=== PATIENT | female | born 1940 | race Caucasian/White ===

== ENCOUNTER 2021-01-02 11:08 | Inpatient (IN) | payer MEDICARE, OTHER ==
[~2021-01-02] VITALS: Ht 162.6 cm; Wt 49.6 kg
[2021-01-02 11:46] LABS: BASOPHILS # (AUTO) 0.1 (0.0-0.1); BASOPHILS % 0.7 % (0.0-1.0); EOSINOPHILS # (AUTO) 0.1 (0.0-0.4); EOSINOPHILS % 0.8 % (0.0-6.0); HEMOGLOBIN 13.8 g/dL (12.0-16.0); LYMPHOCYTES # (AUTO) 1.8 (1.0-3.2); LYMPHOCYTES % 12.1 % (18.0-39.1); MEAN CORPUSCULAR HEMOGLOBIN 28.4 pg (28-32); MEAN CORPUSCULAR HGB CONC 32.1 g/dL (31-35); MEAN CORPUSCULAR VOLUME 88.5 fL (81-99); MONOCYTES # (AUTO) 0.5 (0.2-0.8); MONOCYTES % 3.5 % (4.4-11.3); NEUTROPHILS # (AUTO) 12.1 (2.1-6.9); NEUTROPHILS % 81.7 % (38.7-80.0); PLATELET COUNT 382 x10e3/uL (140-360); RED BLOOD COUNT 4.86 x10e6/uL (3.6-5.1); RED CELL DISTRIBUTION WIDTH 13.7 % (11.7-14.4)
[2021-01-02 11:49] LABS: CLARITY,URINE CLEAR (CLEAR); COLOR,URINE YELLOW (YELLOW); KETONES,URINE NEGATIVE (NEGATIVE); LEUKOCYTE ESTERASE ,URINE NEGATIVE (NEGATIVE); NITRITE,URINE NEGATIVE (NEGATIVE); PROTEIN,URINE DIPSTICK NEGATIVE (NEGATIVE); URINE UROBILINOGEN 0.2 mg/dL (0.2 - 1)
[2021-01-02 11:52] LABS: INR 1.04; PROTHROMBIN TIME 14.2 seconds (11.9-14.5)
[2021-01-02 11:53] LABS: PARTIAL THROMBOPLASTIN TIME 29.7 seconds (23.8-35.5)
[2021-01-02 11:57] LABS: RBC,URINE 0-5 /HPF (0-5); WBC,URINE (MAN) 0-5 /HPF (0-5)
[2021-01-02 11:58] LABS: BACTERIA,URINE RARE /HPF; EPITHELIAL CELLS,URINE RARE /LPF
[2021-01-02 12:00] LABS: ALBUMIN 3.5 g/dL (3.5-5.0); ALBUMIN/GLOBULIN RATIO 1.1 (0.8-2.0); ANION GAP 16.9 mmol/L (8-16); CALCIUM 9.3 mg/dL (8.4-10.2); CREATININE, SERUM 1.19 mg/dL (0.57-1.11); MAGNESIUM 2.1 MG/DL (1.3-2.1); POTASSIUM 3.9 mmol/L (3.5-5.1)
[2021-01-02] MEDS ORDERED: VENLAFAXINE HCL75 MG PO (12:04)
[2021-01-02] MEDS ORDERED: ZITHROMAX250 MG PO (12:04)
[2021-01-02] MEDS ORDERED: PLAVIX75 MG PO (12:04)
[2021-01-02] MEDS ORDERED: METOPROLOL TART25 MG PO (12:04)
[2021-01-02] MEDS ORDERED: ATORVASTATIN CA20 MG PO (12:04)
[2021-01-02] MEDS ORDERED: LASIX20 MG PO (12:04)
[2021-01-02] MEDS ORDERED: TRAZODONE HCL100 MG PO (12:04)
[2021-01-02] MEDS ORDERED: AMLODIPINE BESYL5 MG PO (12:04)
[2021-01-02] MEDS ORDERED: PREDNISONE10 MG PO (12:04)
[2021-01-02] MEDS ORDERED: ARICEPT5 MG PO (12:04)
[2021-01-02] MEDS ORDERED: CALCIUM CARBON500 MG PO (12:04)
[2021-01-02 12:07] LABS: CREATINE KINASE MB 0.4 ng/mL (0-5.0)
[2021-01-02] MEDS ORDERED: SODIUM CHLORIDE 0.9% 1000ML 1,000 ML IV ONE (13:00)
[2021-01-02] MEDS ORDERED: ONDANSETRON HCL INJ 2MG/ML 2ML 2 MG/ML VIAL IV PRN (13:00)
[2021-01-02 17:00] VITALS: BP 138/86
[2021-01-02 17:01] VITALS: BP 138/86
[2021-01-02 18:10] LABS: CREATINE KINASE MB 0.6 ng/mL (0-5.0)
[2021-01-02 20:00] VITALS: BP 175/88
[2021-01-02] MEDS ORDERED: ACETAMINOPHEN 325 MG TAB PO PRN (20:00)
[2021-01-02] MEDS ORDERED: HYDRALAZINE HCL 20 MG/ML VIAL IV PRN (20:00)
[2021-01-02] MEDS ORDERED: ACETAMINOPHEN/CODEINE 300MG - 30MG TAB PO PRN (20:00)
[2021-01-02 21:00] VITALS: BP 175/88
[2021-01-02] MEDS: DONEPEZIL HCL 5 MG TAB PO SCH (21:00)
[2021-01-02] MEDS: TRAZODONE HCL 50 MG TAB PO SCH (21:00)
[2021-01-02] MEDS: ATORVASTATIN 20 MG TAB PO SCH (21:00)
[2021-01-03] VITALS (7 sets, daily range): BP systolic 90–149; BP diastolic 50–92
[2021-01-03 05:31] LABS: BASOPHILS # (AUTO) 0.1 (0.0-0.1); BASOPHILS % 0.5 % (0.0-1.0); EOSINOPHILS # (AUTO) 0.1 (0.0-0.4); EOSINOPHILS % 0.7 % (0.0-6.0); HEMATOCRIT 35.9 % (34.2-44.1); LYMPHOCYTES # (AUTO) 2.3 (1.0-3.2); LYMPHOCYTES % 20.4 % (18.0-39.1); MEAN CORPUSCULAR HEMOGLOBIN 28.8 pg (28-32); MEAN CORPUSCULAR HGB CONC 33.4 g/dL (31-35); MEAN CORPUSCULAR VOLUME 86.1 fL (81-99); MONOCYTES # (AUTO) 0.6 (0.2-0.8); MONOCYTES % 5.4 % (4.4-11.3); NEUTROPHILS % 72.1 % (38.7-80.0); PLATELET COUNT 319 x10e3/uL (140-360); RED BLOOD COUNT 4.17 x10e6/uL (3.6-5.1); RED CELL DISTRIBUTION WIDTH 13.6 % (11.7-14.4)
[2021-01-03 05:59] LABS: ALBUMIN 3.2 g/dL (3.5-5.0); ANION GAP 16.7 mmol/L (8-16); CALCIUM 9.4 mg/dL (8.4-10.2); CHOL/HDL RATIO 3.8 (3.0-3.6); CREATININE, SERUM 1.17 mg/dL (0.57-1.11); POTASSIUM 3.7 mmol/L (3.5-5.1)
[2021-01-03 06:18] LABS: CREATINE KINASE MB 0.6 ng/mL (0-5.0)
[2021-01-03] MEDS: FAMOTIDINE 20 MG TAB PO SCH ×2 (07:53→16:30)
[2021-01-03] MEDS: METOPROLOL TARTRATE 25 MG TAB PO SCH ×2 (08:45→16:31)
[2021-01-03] MEDS: VENLAFAXINE HCL 75 MG TAB PO SCH (08:45)
[2021-01-03] MEDS: FUROSEMIDE 20 MG TAB PO SCH (08:45)
[2021-01-03] MEDS ORDERED: CLOPIDOGREL BISULFATE 75 MG TAB PO SCH (09:00)
[2021-01-03] MEDS ORDERED: AMLODIPINE BESYLATE 5 MG TAB PO SCH (09:00)
[2021-01-03] MEDS ORDERED: ENOXAPARIN SOD INJ 60 MG/0.6 ML SYR SC SCH (10:45)
[2021-01-03] MEDS ORDERED: ONDANSETRON HCL 4 MG ORAL DISINTEGRATING TAB PO PRN (14:00)
[2021-01-03 14:43] LABS: CREATINE KINASE MB 0.7 ng/mL (0-5.0)
[2021-01-03] MEDS: APIXAB 2.5 MG TABLET PO SCH (16:30)
[2021-01-03] MEDS: ATORVASTATIN 20 MG TAB PO SCH (21:00)
[2021-01-03] MEDS: TRAZODONE HCL 50 MG TAB PO SCH (21:00)
[2021-01-03] MEDS: DONEPEZIL HCL 5 MG TAB PO SCH (21:00)
[2021-01-04] VITALS: BP 125/76
[2021-01-04 04:00] VITALS: BP 137/77
[2021-01-04 06:04] LABS: BASOPHILS # (AUTO) 0.1 (0.0-0.1); BASOPHILS % 1.1 % (0.0-1.0); EOSINOPHILS # (AUTO) 0.2 (0.0-0.4); EOSINOPHILS % 2.9 % (0.0-6.0); HEMATOCRIT 36.8 % (34.2-44.1); HEMOGLOBIN 12.2 g/dL (12.0-16.0); LYMPHOCYTES # (AUTO) 2.5 (1.0-3.2); LYMPHOCYTES % 31.3 % (18.0-39.1); MEAN CORPUSCULAR HEMOGLOBIN 28.6 pg (28-32); MEAN CORPUSCULAR HGB CONC 33.2 g/dL (31-35); MEAN CORPUSCULAR VOLUME 86.2 fL (81-99); MONOCYTES # (AUTO) 0.5 (0.2-0.8); MONOCYTES % 6.7 % (4.4-11.3); NEUTROPHILS # (AUTO) 4.5 (2.1-6.9); NEUTROPHILS % 57.2 % (38.7-80.0); PLATELET COUNT 280 x10e3/uL (140-360); RED BLOOD COUNT 4.27 x10e6/uL (3.6-5.1); RED CELL DISTRIBUTION WIDTH 13.5 % (11.7-14.4)
[2021-01-04 06:35] LABS: ANION GAP 15.6 mmol/L (8-16); CALCIUM 9.2 mg/dL (8.4-10.2); CREATININE, SERUM 1.04 mg/dL (0.57-1.11); MAGNESIUM 1.9 MG/DL (1.3-2.1); PHOSPHORUS 3.5 MG/DL (2.3-4.7); POTASSIUM 3.6 mmol/L (3.5-5.1)
[2021-01-04] MEDS: FAMOTIDINE 20 MG TAB PO SCH ×2 (07:30→16:05)
[2021-01-04 07:44] VITALS: BP 110/73
[2021-01-04 07:54] VITALS: BP 110/73
[2021-01-04 07:55] VITALS: BP 110/73
[2021-01-04] MEDS ORDERED: PREDNISONE 10 MG TAB PO SCH (09:00)
[2021-01-04] MEDS ORDERED: AMLODIPINE BESYLATE 5 MG TAB PO SCH (09:00)
[2021-01-04] MEDS ORDERED: CLOPIDOGREL BISULFATE 75 MG TAB PO SCH (09:00)
[2021-01-04] MEDS ORDERED: OYST-CAL-D 500MG TABLET PO SCH (09:00)
[2021-01-04] MEDS: VENLAFAXINE HCL 75 MG TAB PO SCH (09:06)
[2021-01-04] MEDS: APIXAB 2.5 MG TABLET PO SCH ×2 (09:06→16:05)
[2021-01-04] MEDS: METOPROLOL TARTRATE 25 MG TAB PO SCH ×2 (09:07→16:08)
[2021-01-04] MEDS: FUROSEMIDE 20 MG TAB PO SCH (09:07)
[2021-01-04 12:17] VITALS: BP 104/60
[2021-01-04] MEDS ORDERED: ELIQUIS2.5 MG PO (15:09)
[2021-01-04] MEDS ORDERED: ACETAMINOPHEN325 M1 PO (15:09)
[2021-01-04] MEDS ORDERED: ONDANSETRON ODT4 MG PO (15:09)
[2021-01-04] MEDS ORDERED: TYLENOL # 31 EA PO (15:09)
== END 2021-01-04 17:35 | disposition home or self-care (01) | DRG 309 ==
LOC: ER 11:17 → ERHOLD 12:57 → MED/SURG3 16:10 → OBSVTOIN 01-04 10:02
PROVIDERS: ADMIT Internal Medicine; ATTEND Internal Medicine
DX: I48.91 Unspecified atrial fibrillation (principal); Z68.1 Body mass index [BMI] 19.9 or less, adult; I67.4 Hypertensive encephalopathy; I10 Essential (primary) hypertension; E87.5 Hyperkalemia; F03.90 Unspecified dementia, unspecified severity, without behavioral disturbance, psychotic disturbance, mood disturbance, and anxiety; Z86.73 Personal history of transient ischemic attack (TIA), and cerebral infarction without residual deficits; J44.9 Chronic obstructive pulmonary disease, unspecified; L27.1 Localized skin eruption due to drugs and medicaments taken internally; T46.5X5A Adverse effect of other antihypertensive drugs, initial encounter; E78.5 Hyperlipidemia, unspecified; I49.3 Ventricular premature depolarization; Z20.822 Contact with and (suspected) exposure to COVID-19; I70.0 Atherosclerosis of aorta; G93.89 Other specified disorders of brain; R63.6 Underweight
CPT/HCPCS: 36415; 51700; 70450; 70551; 71045; 72125; 80048; 80053; 80061; 81001; 82550; 82553; 83735; 83880; 84100; 84443; 84484; 85025; 85610; 85730; 87086; 93005; 93306; 93880; 99284; G0378; J0360; J1650; J7512; U0002

== ENCOUNTER 2021-04-16 05:51 | Inpatient (IN) | payer MEDICARE, OTHER ==
[~2021-04-16] VITALS: Ht 160 cm; Wt 52.6 kg
[2021-04-16] VITALS (10 sets, daily range): BP systolic 117–168; BP diastolic 60–132
[~2021-04-16 05:51] MED LIST: ACETAMINOPHEN325 M1 PO; AMLODIPINE BESYL5 MG PO; ARICEPT5 MG PO; ATORVASTATIN CA20 MG PO; CALCIUM CARBON500 MG PO; ELIQUIS2.5 MG PO; LASIX20 MG PO; METOPROLOL TART25 MG PO; ONDANSETRON ODT4 MG PO; PLAVIX75 MG PO; PREDNISONE10 MG PO; TRAZODONE HCL100 MG PO; TYLENOL # 31 EA PO; VENLAFAXINE HCL75 MG PO; ZITHROMAX250 MG PO
[2021-04-16 06:25] LABS: BASOPHILS # (AUTO) 0.1 (0.0-0.1); BASOPHILS % 0.5 % (0.0-1.0); EOSINOPHILS # (AUTO) 0.1 (0.0-0.4); EOSINOPHILS % 0.5 % (0.0-6.0); HEMATOCRIT 38.6 % (34.2-44.1); HEMOGLOBIN 12.2 g/dL (12.0-16.0); LYMPHOCYTES # (AUTO) 1.7 (1.0-3.2); LYMPHOCYTES % 11.3 % (18.0-39.1); MEAN CORPUSCULAR HEMOGLOBIN 27.3 pg (28-32); MEAN CORPUSCULAR HGB CONC 31.6 g/dL (31-35); MEAN CORPUSCULAR VOLUME 86.4 fL (81-99); MONOCYTES # (AUTO) 0.7 (0.2-0.8); MONOCYTES % 4.7 % (4.4-11.3); NEUTROPHILS # (AUTO) 12.3 (2.1-6.9); NEUTROPHILS % 81.9 % (38.7-80.0); PLATELET COUNT 466 x10e3/uL (140-360); RED BLOOD COUNT 4.47 x10e6/uL (3.6-5.1); RED CELL DISTRIBUTION WIDTH 16.7 % (11.7-14.4)
[2021-04-16] MEDS ORDERED: METOPROLOL TARTRATE INJ 1 MG/ML VIAL ONE (06:25)
[2021-04-16] MEDS ORDERED: DIGOXIN INJ 0.25 MG/ML 2 ML AMP ONE (06:25)
[2021-04-16] MEDS ORDERED: DIGOXIN INJ 0.25 MG/ML 2 ML AMP IV ONE ×2 (06:30→08:00)
[2021-04-16] MEDS ORDERED: METOPROLOL TARTRATE INJ 1 MG/ML VIAL IV ONE ×2 (06:30→07:00)
[2021-04-16 06:32] LABS: INR 1.15; PROTHROMBIN TIME 15.4 seconds (11.9-14.5)
[2021-04-16 06:33] LABS: PARTIAL THROMBOPLASTIN TIME 23.9 seconds (23.8-35.5)
[2021-04-16 06:41] LABS: ALBUMIN 2.8 g/dL (3.5-5.0); ALBUMIN/GLOBULIN RATIO 0.7 (0.8-2.0); ANION GAP 17.3 mmol/L (8-16); CALCIUM 9.6 mg/dL (8.4-10.2); CREATININE, SERUM 1.07 mg/dL (0.57-1.11); POTASSIUM 4.3 mmol/L (3.5-5.1)
[2021-04-16 06:45] LABS: CLARITY,URINE CLEAR (CLEAR); COLOR,URINE YELLOW (YELLOW); KETONES,URINE TRACE (NEGATIVE); LEUKOCYTE ESTERASE ,URINE NEGATIVE (NEGATIVE); NITRITE,URINE NEGATIVE (NEGATIVE); PROTEIN,URINE DIPSTICK 1+ (NEGATIVE); URINE UROBILINOGEN 0.2 mg/dL (0.2 - 1)
[2021-04-16 06:47] LABS: CREATINE KINASE MB 1.3 ng/mL (0-5.0)
[2021-04-16 06:56] LABS: BACTERIA,URINE RARE /HPF; EPITHELIAL CELLS,URINE FEW /LPF
[2021-04-16] MEDS ORDERED: CEFTRIAXONE 1 GM in SODIUM CHLORIDE 0.9% 50ML 50 ML IV SCH (07:30)
[2021-04-16] MEDS ORDERED: AZITHROMYCIN 500MG/NS 250 ML 250 ML IV SCH (07:30)
[2021-04-16] MEDS ORDERED: METOPROLOL TARTRATE 25 MG TAB PO ONE (08:45)
[2021-04-16] MEDS: PIPERACILLIN/TAZOBACTAM 3.375 GM in SODIUM CHLORIDE 0.9% 50ML 50 ML IV SCH ×3 (09:03→19:51)
[2021-04-16] MEDS: FAMOTIDINE 20 MG/2 ML VIAL IV SCH ×2 (09:30→20:10)
[2021-04-16] MEDS ORDERED: ONDANSETRON HCL INJ 2MG/ML 2ML 2 MG/ML VIAL IV PRN (09:30)
[2021-04-16] MEDS ORDERED: NITROGLYCERIN 2% OINT 1 GM PKT TOP ONE (09:30)
[2021-04-16 10:04] LABS: ABG PCO2 40 mmHg (35-45); ABG PH 7.46 (7.35-7.45); ABG PO2 222 mmHg (80-105)
[2021-04-16 10:05] LABS: ABG HCO3 29 mmol/L (22-26); ABG TCO2 30
[2021-04-16] MEDS ORDERED: NITROGLYCERIN 2% OINT 1 GM PKT TOP SCH (12:00)
[2021-04-16 13:24] LABS: CREATINE KINASE MB 1.5 ng/mL (0-5.0)
[2021-04-16] MEDS ORDERED: SODIUM CHLORIDE 0.9% IV SCH (13:30)
[2021-04-16] MEDS ORDERED: HYDRALAZINE HCL 20 MG/ML VIAL IV PRN (14:45)
[2021-04-16] MEDS: METOPROLOL TARTRATE 25 MG TAB PO SCH ×2 (14:45→18:00)
[2021-04-16] MEDS ORDERED: METOPROLOL TARTRATE INJ 1 MG/ML VIAL IV PRN (14:45)
[2021-04-16] MEDS ORDERED: FUROSEMIDE INJ 10 MG/ML 2 ML VIAL IV SCH (18:00)
[2021-04-16] MEDS ORDERED: FUROSEMIDE INJ 10 MG/ML 2 ML VIAL IV ONE (18:00)
[2021-04-16] MEDS ORDERED: FUROSEMIDE INJ 10 MG/ML 4 ML VIAL IV ONE (19:15)
[2021-04-16] MEDS ORDERED: VANCOMYCIN 1GM/NS 250 ML 250 ML IV ONE (19:15)
[2021-04-16] MEDS ORDERED: ALBUTEROL/IPRATROPIUM 3 ML NEB NEB SCH (19:30)
[2021-04-16] MEDS: BUDESONIDE 0.25 MG/2 ML NEB NEB SCH (19:30)
[2021-04-16] MEDS: IPRATROPIUM BROMIDE 0.02% 2.5 ML NEB NEB SCH (19:30)
[2021-04-16] MEDS: METHYLPREDNISOLONE SOD SUCC 40 MG/ML VIAL 1ML IV SCH ×2 (20:10→21:00)
[2021-04-16] MEDS: ENOXAPARIN SOD INJ 40 MG/0.4 ML SYR SC SCH (20:10)
[2021-04-16] MEDS ORDERED: METOPROLOL TARTRATE 25 MG TAB PO SCH (21:00)
[2021-04-16] MEDS ORDERED: Vancomycin IV 1 GM VIAL ONE (21:27)
[2021-04-16] MEDS ORDERED: SODIUM CHLORIDE 0.9% 250ML 250 ML ONE (21:28)
[2021-04-17] VITALS (23 sets, daily range): BP systolic 98–159; BP diastolic 49–96
[2021-04-17 00:15] LABS: ABG HCO3 24 mmol/L (22-26); ABG PCO2 34 mmHg (35-45); ABG PH 7.46 (7.35-7.45); ABG PO2 78 mmHg (80-105); ABG TCO2 25
[2021-04-17] MEDS: PIPERACILLIN/TAZOBACTAM 3.375 GM in SODIUM CHLORIDE 0.9% 50ML 50 ML IV SCH ×4 (00:45→17:14)
[2021-04-17] MEDS: IPRATROPIUM BROMIDE 0.02% 2.5 ML NEB NEB SCH ×3 (01:00→19:35)
[2021-04-17] MEDS: METOPROLOL TARTRATE 25 MG TAB PO SCH ×4 (01:06→17:15)
[2021-04-17 02:35] LABS: CREATINE KINASE MB 1.1 ng/mL (0-5.0)
[2021-04-17 05:08] LABS: BASOPHILS % 0.3 % (0.0-1.0); HEMATOCRIT 29.4 % (34.2-44.1); HEMOGLOBIN 9.3 g/dL (12.0-16.0); LYMPHOCYTES # (AUTO) 0.8 (1.0-3.2); MEAN CORPUSCULAR HEMOGLOBIN 27.2 pg (28-32); MEAN CORPUSCULAR HGB CONC 31.6 g/dL (31-35); MONOCYTES # (AUTO) 0.1 (0.2-0.8); MONOCYTES % 1.2 % (4.4-11.3); NEUTROPHILS # (AUTO) 6.4 (2.1-6.9); NEUTROPHILS % 86.4 % (38.7-80.0); PLATELET COUNT 384 x10e3/uL (140-360); RED BLOOD COUNT 3.42 x10e6/uL (3.6-5.1); RED CELL DISTRIBUTION WIDTH 16.4 % (11.7-14.4)
[2021-04-17 05:26] LABS: ALBUMIN/GLOBULIN RATIO 0.6 (0.8-2.0); ANION GAP 11.3 mmol/L (8-16); CALCIUM 8.2 mg/dL (8.4-10.2); CHOL/HDL RATIO 5.2 (3.0-3.6); CREATININE, SERUM 0.86 mg/dL (0.57-1.11); POTASSIUM 3.3 mmol/L (3.5-5.1)
[2021-04-17] MEDS ORDERED: POTASSIUM CHLORIDE 10MEQ EA PO ONE (06:30)
[2021-04-17] MEDS: BUDESONIDE 0.25 MG/2 ML NEB NEB SCH ×2 (07:00→19:35)
[2021-04-17] MEDS: FAMOTIDINE 20 MG/2 ML VIAL IV SCH ×2 (08:50→21:07)
[2021-04-17] MEDS: ASPIRIN 81 MG ENTERIC COATED PO SCH (08:50)
[2021-04-17] MEDS: ENOXAPARIN SOD INJ 40 MG/0.4 ML SYR SC SCH ×2 (08:50→21:07)
[2021-04-17] MEDS: METHYLPREDNISOLONE SOD SUCC 40 MG/ML VIAL 1ML IV SCH (08:50)
[2021-04-17] MEDS: AMLODIPINE BESYLATE 5 MG TAB PO SCH (09:00)
[2021-04-17] MEDS ORDERED: SODIUM HYPOCHLORITE 0.25% 480 ML SOLN IR ONE (12:30)
[2021-04-17] MEDS: HALOPERIDOL 1 MG TAB PO SCH (18:37)
[2021-04-17] MEDS ORDERED: SODIUM CHLORIDE 0.9% 250ML 250 ML ONE (23:53)
[2021-04-18] VITALS (9 sets, daily range): BP systolic 90–172; BP diastolic 53–112
[2021-04-18] MEDS: IPRATROPIUM BROMIDE 0.02% 2.5 ML NEB NEB SCH ×3 (00:02→20:14)
[2021-04-18] MEDS: PIPERACILLIN/TAZOBACTAM 3.375 GM in SODIUM CHLORIDE 0.9% 50ML 50 ML IV SCH ×5 (00:12→23:38)
[2021-04-18 00:54] LABS: % IRON SATURATION 11 % (15-50); IRON 22 ug/dL (50-170); TOTAL IRON BINDING CAPACITY 197 ug/dL (261-478); TRANSFERRIN 141 mg/dL (180-382)
[2021-04-18 04:54] LABS: BASOPHILS % 0.1 % (0.0-1.0); EOSINOPHILS % 0.2 % (0.0-6.0); HEMATOCRIT 33.3 % (34.2-44.1); HEMOGLOBIN 10.7 g/dL (12.0-16.0); LYMPHOCYTES # (AUTO) 2.7 (1.0-3.2); LYMPHOCYTES % 18.6 % (18.0-39.1); MEAN CORPUSCULAR HEMOGLOBIN 27.6 pg (28-32); MEAN CORPUSCULAR HGB CONC 32.1 g/dL (31-35); MONOCYTES # (AUTO) 0.7 (0.2-0.8); MONOCYTES % 4.7 % (4.4-11.3); NEUTROPHILS # (AUTO) 10.8 (2.1-6.9); NEUTROPHILS % 75.1 % (38.7-80.0); PLATELET COUNT 414 x10e3/uL (140-360); RED BLOOD COUNT 3.87 x10e6/uL (3.6-5.1); RED CELL DISTRIBUTION WIDTH 16.4 % (11.7-14.4)
[2021-04-18 05:23] LABS: ALBUMIN 2.1 g/dL (3.5-5.0); ALBUMIN/GLOBULIN RATIO 0.6 (0.8-2.0); ANION GAP 12.3 mmol/L (8-16); CALCIUM 9.4 mg/dL (8.4-10.2); CREATININE, SERUM 1.02 mg/dL (0.57-1.11); POTASSIUM 3.3 mmol/L (3.5-5.1)
[2021-04-18] MEDS: METOPROLOL TARTRATE 25 MG TAB PO SCH ×4 (05:42→17:19)
[2021-04-18] MEDS: HALOPERIDOL 1 MG TAB PO SCH ×2 (05:42→17:19)
[2021-04-18] MEDS: AMLODIPINE BESYLATE 5 MG TAB PO SCH ×2 (09:00→17:10)
[2021-04-18] MEDS ORDERED: METHYLPREDNISOLONE SOD SUCC 40 MG/ML VIAL 1ML IV SCH (09:00)
[2021-04-18] MEDS: BUDESONIDE 0.25 MG/2 ML NEB NEB SCH ×2 (10:33→20:14)
[2021-04-18] MEDS: ENOXAPARIN SOD INJ 40 MG/0.4 ML SYR SC SCH ×2 (10:43→21:25)
[2021-04-18] MEDS: FAMOTIDINE 20 MG/2 ML VIAL IV SCH (10:43)
[2021-04-18] MEDS: FUROSEMIDE INJ 10 MG/ML 4 ML VIAL IV SCH (10:43)
[2021-04-18] MEDS: ASPIRIN 81 MG ENTERIC COATED PO SCH (11:01)
[2021-04-18] MEDS: POTASSIUM CHLORIDE 10MEQ EA PO SCH (11:02)
[2021-04-18] MEDS ORDERED: ONDANSETRON HCL 4 MG ORAL DISINTEGRATING TAB PO PRN (11:45)
[2021-04-18] MEDS: IRON SUCROSE 100 MG in SODIUM CHLORIDE 0.9% 100 ML 100 ML IV SCH (12:00)
[2021-04-18] MEDS: FAMOTIDINE 20 MG TAB PO SCH (21:25)
[2021-04-19] VITALS (8 sets, daily range): BP systolic 140–177; BP diastolic 77–113
[2021-04-19] MEDS: IPRATROPIUM BROMIDE 0.02% 2.5 ML NEB NEB SCH ×4 (00:25→19:48)
[2021-04-19] MEDS ORDERED: CYANOCOBALAMIN INJ 1,000 MCG/ML VIAL IM ONE (00:30)
[2021-04-19 04:53] LABS: BASOPHILS % 0.2 % (0.0-1.0); EOSINOPHILS % 0.1 % (0.0-6.0); HEMOGLOBIN 11.2 g/dL (12.0-16.0); LYMPHOCYTES # (AUTO) 2.9 (1.0-3.2); LYMPHOCYTES % 17.2 % (18.0-39.1); MEAN CORPUSCULAR HEMOGLOBIN 27.3 pg (28-32); MEAN CORPUSCULAR VOLUME 85.2 fL (81-99); MONOCYTES % 5.8 % (4.4-11.3); NEUTROPHILS # (AUTO) 12.6 (2.1-6.9); NEUTROPHILS % 75.4 % (38.7-80.0); PLATELET COUNT 544 x10e3/uL (140-360); RED BLOOD COUNT 4.11 x10e6/uL (3.6-5.1); RED CELL DISTRIBUTION WIDTH 16.3 % (11.7-14.4)
[2021-04-19 05:21] LABS: ALBUMIN 2.6 g/dL (3.5-5.0); ALBUMIN/GLOBULIN RATIO 0.7 (0.8-2.0); ANION GAP 13.8 mmol/L (8-16); CALCIUM 9.6 mg/dL (8.4-10.2); CREATININE, SERUM 1.06 mg/dL (0.57-1.11)
[2021-04-19 05:26] LABS: POTASSIUM 2.8 mmol/L (3.5-5.1)
[2021-04-19] MEDS: HALOPERIDOL 1 MG TAB PO SCH ×2 (05:45→17:32)
[2021-04-19] MEDS: PIPERACILLIN/TAZOBACTAM 3.375 GM in SODIUM CHLORIDE 0.9% 50ML 50 ML IV SCH ×4 (05:45→23:14)
[2021-04-19] MEDS: METOPROLOL TARTRATE 25 MG TAB PO SCH ×2 (05:46)
[2021-04-19] MEDS ORDERED: POTASSIUM CHLORIDE 20 MEQ TAB CR PO ONE ×2 (06:00→08:00)
[2021-04-19] MEDS: BUDESONIDE 0.25 MG/2 ML NEB NEB SCH ×2 (07:00→19:48)
[2021-04-19] MEDS ORDERED: METHYLPREDNISOLONE SOD SUCC 40 MG/ML VIAL 1ML IV SCH (09:00)
[2021-04-19] MEDS: FUROSEMIDE INJ 10 MG/ML 4 ML VIAL IV SCH (09:39)
[2021-04-19] MEDS: CYANOCOBALAMIN INJ 1,000 MCG/ML VIAL IM SCH (09:40)
[2021-04-19] MEDS: AMLODIPINE BESYLATE 5 MG TAB PO SCH (10:01)
[2021-04-19] MEDS: FAMOTIDINE 20 MG TAB PO SCH ×2 (10:02→22:53)
[2021-04-19] MEDS: POTASSIUM CHLORIDE 10MEQ EA PO SCH (10:12)
[2021-04-19] MEDS: APIXAB 2.5 MG TABLET PO SCH ×2 (10:18→17:32)
[2021-04-19] MEDS: METOPROLOL TARTRATE 50 MG TAB PO SCH ×2 (10:18→22:58)
[2021-04-19] MEDS: IRON SUCROSE 100 MG in SODIUM CHLORIDE 0.9% 100 ML 100 ML IV SCH (13:02)
[2021-04-20 00:07] VITALS: BP 162/111
[2021-04-20] MEDS: IPRATROPIUM BROMIDE 0.02% 2.5 ML NEB NEB SCH ×4 (00:25→19:05)
[2021-04-20 05:00] LABS: BASOPHILS % 0.1 % (0.0-1.0); EOSINOPHILS # (AUTO) 0.1 (0.0-0.4); EOSINOPHILS % 0.4 % (0.0-6.0); HEMATOCRIT 31.2 % (34.2-44.1); HEMOGLOBIN 9.9 g/dL (12.0-16.0); LYMPHOCYTES # (AUTO) 2.5 (1.0-3.2); LYMPHOCYTES % 17.9 % (18.0-39.1); MEAN CORPUSCULAR HEMOGLOBIN 27.5 pg (28-32); MEAN CORPUSCULAR HGB CONC 31.7 g/dL (31-35); MEAN CORPUSCULAR VOLUME 86.7 fL (81-99); MONOCYTES # (AUTO) 0.8 (0.2-0.8); MONOCYTES % 5.9 % (4.4-11.3); NEUTROPHILS # (AUTO) 10.4 (2.1-6.9); NEUTROPHILS % 74.7 % (38.7-80.0); PLATELET COUNT 428 x10e3/uL (140-360); RED CELL DISTRIBUTION WIDTH 16.4 % (11.7-14.4)
[2021-04-20 05:32] LABS: ANION GAP 14.6 mmol/L (8-16); CALCIUM 9.2 mg/dL (8.4-10.2); CREATININE, SERUM 0.89 mg/dL (0.57-1.11); MAGNESIUM 1.8 MG/DL (1.3-2.1)
[2021-04-20 05:35] LABS: POTASSIUM 3.6 mmol/L (3.5-5.1)
[2021-04-20] MEDS: HALOPERIDOL 1 MG TAB PO SCH ×2 (05:49→18:00)
[2021-04-20] MEDS: PIPERACILLIN/TAZOBACTAM 3.375 GM in SODIUM CHLORIDE 0.9% 50ML 50 ML IV SCH ×3 (05:49→18:00)
[2021-04-20] MEDS: BUDESONIDE 0.25 MG/2 ML NEB NEB SCH ×2 (07:29→19:05)
[2021-04-20 08:00] VITALS: BP 162/111
[2021-04-20 08:29] VITALS: BP 178/97
[2021-04-20] MEDS: FAMOTIDINE 20 MG TAB PO SCH ×2 (10:30→20:59)
[2021-04-20] MEDS: PREDNISONE 20 MG TAB PO SCH (10:30)
[2021-04-20] MEDS: APIXAB 2.5 MG TABLET PO SCH ×2 (10:30→18:00)
[2021-04-20] MEDS: FUROSEMIDE INJ 10 MG/ML 4 ML VIAL IV SCH (10:30)
[2021-04-20] MEDS: CYANOCOBALAMIN INJ 1,000 MCG/ML VIAL IM SCH (10:30)
[2021-04-20] MEDS: POTASSIUM CHLORIDE 10MEQ EA PO SCH (10:30)
[2021-04-20] MEDS: AZITHROMYCIN 250 MG TAB PO SCH (10:30)
[2021-04-20] MEDS: METOPROLOL TARTRATE 50 MG TAB PO SCH ×2 (10:31→20:59)
[2021-04-20 11:51] VITALS: BP 176/95
[2021-04-20] MEDS: IRON SUCROSE 100 MG in SODIUM CHLORIDE 0.9% 100 ML 100 ML IV SCH (14:30)
[2021-04-20 16:38] VITALS: BP 173/94
[2021-04-20] MEDS: AMLODIPINE BESYLATE 5 MG TAB PO SCH (18:00)
[2021-04-20 19:00] VITALS: BP 174/90
[2021-04-21] VITALS (9 sets, daily range): BP systolic 136–188; BP diastolic 77–104
[2021-04-21] MEDS: IPRATROPIUM BROMIDE 0.02% 2.5 ML NEB NEB SCH ×4 (01:00→19:30)
[2021-04-21] MEDS: HALOPERIDOL 1 MG TAB PO SCH ×2 (05:19→17:40)
[2021-04-21] MEDS: PIPERACILLIN/TAZOBACTAM 3.375 GM in SODIUM CHLORIDE 0.9% 50ML 50 ML IV SCH ×4 (05:19→13:30)
[2021-04-21 06:00] LABS: BASOPHILS # (AUTO) 0.1 (0.0-0.1); BASOPHILS % 0.3 % (0.0-1.0); EOSINOPHILS # (AUTO) 0.2 (0.0-0.4); EOSINOPHILS % 0.9 % (0.0-6.0); HEMATOCRIT 34.6 % (34.2-44.1); HEMOGLOBIN 11.1 g/dL (12.0-16.0); LYMPHOCYTES # (AUTO) 2.7 (1.0-3.2); LYMPHOCYTES % 14.7 % (18.0-39.1); MEAN CORPUSCULAR HEMOGLOBIN 27.4 pg (28-32); MEAN CORPUSCULAR HGB CONC 32.1 g/dL (31-35); MEAN CORPUSCULAR VOLUME 85.4 fL (81-99); MONOCYTES # (AUTO) 0.9 (0.2-0.8); NEUTROPHILS # (AUTO) 14.3 (2.1-6.9); NEUTROPHILS % 77.4 % (38.7-80.0); PLATELET COUNT 452 x10e3/uL (140-360); RED BLOOD COUNT 4.05 x10e6/uL (3.6-5.1); RED CELL DISTRIBUTION WIDTH 16.3 % (11.7-14.4)
[2021-04-21 06:25] LABS: ANION GAP 14.1 mmol/L (8-16); CALCIUM 9.6 mg/dL (8.4-10.2); CREATININE, SERUM 0.86 mg/dL (0.57-1.11); POTASSIUM 3.1 mmol/L (3.5-5.1)
[2021-04-21] MEDS: BUDESONIDE 0.25 MG/2 ML NEB NEB SCH ×2 (06:30→19:30)
[2021-04-21] MEDS: POTASSIUM CHLORIDE 10MEQ EA PO SCH (10:30)
[2021-04-21] MEDS: APIXAB 2.5 MG TABLET PO SCH ×2 (10:30→17:40)
[2021-04-21] MEDS: AZITHROMYCIN 250 MG TAB PO SCH (10:30)
[2021-04-21] MEDS: METOPROLOL TARTRATE 50 MG TAB PO SCH ×2 (10:30→20:09)
[2021-04-21] MEDS: FAMOTIDINE 20 MG TAB PO SCH ×2 (10:30→20:09)
[2021-04-21] MEDS: AMLODIPINE BESYLATE 5 MG TAB PO SCH ×2 (10:30→17:40)
[2021-04-21] MEDS: FUROSEMIDE INJ 10 MG/ML 4 ML VIAL IV SCH (10:30)
[2021-04-21] MEDS: CYANOCOBALAMIN INJ 1,000 MCG/ML VIAL IM SCH (10:30)
[2021-04-21] MEDS: LOSARTAN POTASSIUM 100 MG TAB PO SCH (10:30)
[2021-04-21] MEDS: PREDNISONE 20 MG TAB PO SCH (10:30)
[2021-04-21] MEDS ORDERED: POTASSIUM CHLORIDE 20 MEQ TAB CR PO ONE (12:30)
[2021-04-21 14:53] LABS: AMYLASE 39 U/L (25-125); LIPASE 53 U/L (8-78)
[2021-04-21] MEDS: OYST-CAL-D 500MG TABLET PO SCH (17:40)
[2021-04-22] VITALS (7 sets, daily range): BP systolic 120–152; BP diastolic 63–102
[2021-04-22] MEDS: IPRATROPIUM BROMIDE 0.02% 2.5 ML NEB NEB SCH ×4 (01:15→19:00)
[2021-04-22] MEDS: HALOPERIDOL 1 MG TAB PO SCH ×2 (05:59→17:26)
[2021-04-22 06:21] LABS: BASOPHILS # (AUTO) 0.1 (0.0-0.1); BASOPHILS % 0.3 % (0.0-1.0); EOSINOPHILS # (AUTO) 0.3 (0.0-0.4); EOSINOPHILS % 1.8 % (0.0-6.0); HEMATOCRIT 34.3 % (34.2-44.1); HEMOGLOBIN 10.7 g/dL (12.0-16.0); LYMPHOCYTES # (AUTO) 3.1 (1.0-3.2); MEAN CORPUSCULAR HGB CONC 31.2 g/dL (31-35); MEAN CORPUSCULAR VOLUME 86.6 fL (81-99); MONOCYTES # (AUTO) 0.8 (0.2-0.8); NEUTROPHILS # (AUTO) 11.9 (2.1-6.9); NEUTROPHILS % 72.2 % (38.7-80.0); PLATELET COUNT 407 x10e3/uL (140-360); RED BLOOD COUNT 3.96 x10e6/uL (3.6-5.1); RED CELL DISTRIBUTION WIDTH 16.4 % (11.7-14.4)
[2021-04-22 06:42] LABS: ANION GAP 12.4 mmol/L (8-16); CALCIUM 9.6 mg/dL (8.4-10.2); CREATININE, SERUM 0.92 mg/dL (0.57-1.11); POTASSIUM 3.4 mmol/L (3.5-5.1)
[2021-04-22] MEDS: BUDESONIDE 0.25 MG/2 ML NEB NEB SCH ×2 (07:00→19:00)
[2021-04-22] MEDS: AMLODIPINE BESYLATE 5 MG TAB PO SCH ×2 (09:00→17:00)
[2021-04-22] MEDS: FUROSEMIDE INJ 10 MG/ML 4 ML VIAL IV SCH (09:00)
[2021-04-22] MEDS: METOPROLOL TARTRATE 50 MG TAB PO SCH ×2 (09:00→21:26)
[2021-04-22] MEDS: CYANOCOBALAMIN INJ 1,000 MCG/ML VIAL IM SCH (09:00)
[2021-04-22] MEDS: OYST-CAL-D 500MG TABLET PO SCH ×2 (09:00→17:00)
[2021-04-22] MEDS: FAMOTIDINE 20 MG TAB PO SCH ×2 (09:00→21:25)
[2021-04-22] MEDS: APIXAB 2.5 MG TABLET PO SCH ×2 (09:00→17:00)
[2021-04-22] MEDS: LOSARTAN POTASSIUM 100 MG TAB PO SCH (09:00)
[2021-04-22] MEDS: PREDNISONE 20 MG TAB PO SCH (09:00)
[2021-04-22] MEDS: POTASSIUM CHLORIDE 10MEQ EA PO SCH (09:00)
[2021-04-23] VITALS (10 sets, daily range): BP systolic 105–177; BP diastolic 50–95
[2021-04-23] MEDS: IPRATROPIUM BROMIDE 0.02% 2.5 ML NEB NEB SCH ×4 (00:30→19:59)
[2021-04-23] MEDS ORDERED: ZIPRASIDONE 20 MG VIAL IM STA (04:45)
[2021-04-23] MEDS: HALOPERIDOL 1 MG TAB PO SCH (04:50)
[2021-04-23 05:41] LABS: ABG HCO3 33 mmol/L (22-26); ABG PCO2 44 mmHg (35-45); ABG PH 7.47 (7.35-7.45); ABG PO2 322 mmHg (80-105); ABG TCO2 34
[2021-04-23] MEDS: BUDESONIDE 0.25 MG/2 ML NEB NEB SCH ×2 (06:45→19:59)
[2021-04-23 08:32] LABS: BASOPHILS # (AUTO) 0.1 (0.0-0.1); BASOPHILS % 0.3 % (0.0-1.0); EOSINOPHILS # (AUTO) 0.2 (0.0-0.4); EOSINOPHILS % 1.2 % (0.0-6.0); HEMATOCRIT 34.1 % (34.2-44.1); HEMOGLOBIN 10.6 g/dL (12.0-16.0); LYMPHOCYTES # (AUTO) 2.7 (1.0-3.2); LYMPHOCYTES % 16.2 % (18.0-39.1); MEAN CORPUSCULAR HGB CONC 31.1 g/dL (31-35); MEAN CORPUSCULAR VOLUME 86.8 fL (81-99); MONOCYTES # (AUTO) 0.8 (0.2-0.8); MONOCYTES % 4.6 % (4.4-11.3); NEUTROPHILS # (AUTO) 12.9 (2.1-6.9); NEUTROPHILS % 76.4 % (38.7-80.0); PLATELET COUNT 410 x10e3/uL (140-360); RED BLOOD COUNT 3.93 x10e6/uL (3.6-5.1); RED CELL DISTRIBUTION WIDTH 16.5 % (11.7-14.4)
[2021-04-23 08:48] LABS: ANION GAP 13.4 mmol/L (8-16); CALCIUM 9.8 mg/dL (8.4-10.2); CREATININE, SERUM 1.02 mg/dL (0.57-1.11); POTASSIUM 3.4 mmol/L (3.5-5.1)
[2021-04-23] MEDS: METOPROLOL TARTRATE 50 MG TAB PO SCH ×2 (09:00→22:03)
[2021-04-23] MEDS: AMLODIPINE BESYLATE 5 MG TAB PO SCH (09:00)
[2021-04-23] MEDS: PREDNISONE 20 MG TAB PO SCH (09:00)
[2021-04-23] MEDS: APIXAB 2.5 MG TABLET PO SCH ×2 (09:00→16:06)
[2021-04-23] MEDS: OYST-CAL-D 500MG TABLET PO SCH ×2 (09:00→16:06)
[2021-04-23] MEDS: LOSARTAN POTASSIUM 100 MG TAB PO SCH (09:00)
[2021-04-23] MEDS: FAMOTIDINE 20 MG TAB PO SCH ×2 (09:00→22:03)
[2021-04-23] MEDS: POTASSIUM CHLORIDE 10MEQ EA PO SCH (09:00)
[2021-04-23] MEDS ORDERED: SODIUM CHLORIDE 0.9% 250ML 250 ML ONE (09:36)
[2021-04-23] MEDS: IRON SUCROSE 100 MG in SODIUM CHLORIDE 0.9% 100 ML 100 ML IV SCH (09:47)
[2021-04-23] MEDS: FUROSEMIDE INJ 10 MG/ML 4 ML VIAL IV SCH (09:47)
[2021-04-23] MEDS: CYANOCOBALAMIN INJ 1,000 MCG/ML VIAL IM SCH (09:47)
[2021-04-23] MEDS ORDERED: ZIPRASIDONE 20 MG VIAL IM PRN (11:00)
[2021-04-23] MEDS ORDERED: POTASSIUM CHLORIDE 20MEQ/100ML 100 ML IV ONE (11:45)
[2021-04-23] MEDS: DEXTROSE 5%/0.45% SOD CHL 1,000 ML IV SCH (13:28)
[2021-04-23] MEDS ORDERED: HALOPERIDOL 1 MG TAB PO PRN (13:45)
[2021-04-24] VITALS (8 sets, daily range): BP systolic 117–167; BP diastolic 73–106
[2021-04-24] MEDS: IPRATROPIUM BROMIDE 0.02% 2.5 ML NEB NEB SCH ×4 (00:48→19:20)
[2021-04-24] MEDS: DEXTROSE 5%/0.45% SOD CHL 1,000 ML IV SCH (01:09)
[2021-04-24] MEDS: BUDESONIDE 0.25 MG/2 ML NEB NEB SCH ×2 (07:10→19:25)
[2021-04-24] MEDS ORDERED: DEXTROSE 50% SYRINGE 50 ML IV ONE (07:42)
[2021-04-24] MEDS: DEXTROSE 50% SYRINGE 50 ML IV PRN (07:49)
[2021-04-24 08:12] LABS: BASOPHILS # (AUTO) 0.1 (0.0-0.1); BASOPHILS % 0.5 % (0.0-1.0); EOSINOPHILS # (AUTO) 0.3 (0.0-0.4); EOSINOPHILS % 2.6 % (0.0-6.0); HEMATOCRIT 33.6 % (34.2-44.1); HEMOGLOBIN 10.6 g/dL (12.0-16.0); LYMPHOCYTES # (AUTO) 1.8 (1.0-3.2); LYMPHOCYTES % 13.6 % (18.0-39.1); MEAN CORPUSCULAR HEMOGLOBIN 27.5 pg (28-32); MEAN CORPUSCULAR HGB CONC 31.5 g/dL (31-35); MEAN CORPUSCULAR VOLUME 87.3 fL (81-99); MONOCYTES # (AUTO) 0.7 (0.2-0.8); MONOCYTES % 5.1 % (4.4-11.3); NEUTROPHILS # (AUTO) 10.2 (2.1-6.9); NEUTROPHILS % 77.1 % (38.7-80.0); PLATELET COUNT 393 x10e3/uL (140-360); RED BLOOD COUNT 3.85 x10e6/uL (3.6-5.1); RED CELL DISTRIBUTION WIDTH 16.9 % (11.7-14.4)
[2021-04-24 08:39] LABS: ANION GAP 14.3 mmol/L (8-16); CALCIUM 9.3 mg/dL (8.4-10.2); CREATININE, SERUM 0.83 mg/dL (0.57-1.11); POTASSIUM 3.3 mmol/L (3.5-5.1)
[2021-04-24] MEDS: FUROSEMIDE INJ 10 MG/ML 4 ML VIAL IV SCH (08:40)
[2021-04-24] MEDS: CYANOCOBALAMIN INJ 1,000 MCG/ML VIAL IM SCH (08:40)
[2021-04-24] MEDS: APIXAB 2.5 MG TABLET PO SCH ×2 (08:41→16:26)
[2021-04-24] MEDS: METOPROLOL TARTRATE 50 MG TAB PO SCH ×2 (08:41→20:51)
[2021-04-24] MEDS: OYST-CAL-D 500MG TABLET PO SCH ×2 (08:41→16:26)
[2021-04-24] MEDS: PREDNISONE 10 MG TAB PO SCH (08:41)
[2021-04-24] MEDS: POTASSIUM CHLORIDE 10MEQ EA PO SCH (08:41)
[2021-04-24] MEDS: FAMOTIDINE 20 MG TAB PO SCH ×2 (08:41→20:52)
[2021-04-24] MEDS: AMLODIPINE BESYLATE 5 MG TAB PO SCH (08:41)
[2021-04-24] MEDS: LOSARTAN POTASSIUM 100 MG TAB PO SCH (08:41)
[2021-04-24] MEDS ORDERED: PREDNISONE 10 MG TAB PO SCH (09:00)
[2021-04-24] MEDS: IRON SUCROSE 100 MG in SODIUM CHLORIDE 0.9% 100 ML 100 ML IV SCH (11:34)
[2021-04-24] MEDS ORDERED: KCL 20 MEQ PACKET/ ORAL SOLN PO PRN (14:15)
[2021-04-25] VITALS (8 sets, daily range): BP systolic 129–170; BP diastolic 72–98
[2021-04-25] MEDS: IPRATROPIUM BROMIDE 0.02% 2.5 ML NEB NEB SCH ×4 (00:10→19:50)
[2021-04-25 05:05] LABS: BASOPHILS # (AUTO) 0.1 (0.0-0.1); BASOPHILS % 0.4 % (0.0-1.0); EOSINOPHILS # (AUTO) 0.3 (0.0-0.4); HEMATOCRIT 33.3 % (34.2-44.1); HEMOGLOBIN 10.6 g/dL (12.0-16.0); LYMPHOCYTES # (AUTO) 2.3 (1.0-3.2); LYMPHOCYTES % 16.3 % (18.0-39.1); MEAN CORPUSCULAR HEMOGLOBIN 27.5 pg (28-32); MEAN CORPUSCULAR HGB CONC 31.8 g/dL (31-35); MEAN CORPUSCULAR VOLUME 86.5 fL (81-99); MONOCYTES # (AUTO) 0.8 (0.2-0.8); MONOCYTES % 5.4 % (4.4-11.3); NEUTROPHILS # (AUTO) 10.4 (2.1-6.9); NEUTROPHILS % 74.8 % (38.7-80.0); PLATELET COUNT 376 x10e3/uL (140-360); RED BLOOD COUNT 3.85 x10e6/uL (3.6-5.1); RED CELL DISTRIBUTION WIDTH 16.5 % (11.7-14.4)
[2021-04-25 05:22] LABS: ANION GAP 12.6 mmol/L (8-16); CALCIUM 9.3 mg/dL (8.4-10.2); CREATININE, SERUM 0.73 mg/dL (0.57-1.11); POTASSIUM 3.6 mmol/L (3.5-5.1)
[2021-04-25] MEDS: POTASSIUM CHLORIDE 10MEQ EA PO SCH (09:04)
[2021-04-25] MEDS: PREDNISONE 10 MG TAB PO SCH (09:04)
[2021-04-25] MEDS: METOPROLOL TARTRATE 50 MG TAB PO SCH ×2 (09:05→21:49)
[2021-04-25] MEDS: OYST-CAL-D 500MG TABLET PO SCH ×2 (09:05→17:31)
[2021-04-25] MEDS: CYANOCOBALAMIN INJ 1,000 MCG/ML VIAL IM SCH (09:06)
[2021-04-25] MEDS: LOSARTAN POTASSIUM 100 MG TAB PO SCH (09:06)
[2021-04-25] MEDS: FUROSEMIDE INJ 10 MG/ML 4 ML VIAL IV SCH (09:06)
[2021-04-25] MEDS: FAMOTIDINE 20 MG TAB PO SCH ×2 (09:06→21:49)
[2021-04-25] MEDS: AMLODIPINE BESYLATE 5 MG TAB PO SCH (09:06)
[2021-04-25] MEDS: APIXAB 2.5 MG TABLET PO SCH ×2 (09:08→21:49)
[2021-04-25] MEDS: IRON SUCROSE 100 MG in SODIUM CHLORIDE 0.9% 100 ML 100 ML IV SCH (09:08)
[2021-04-25] MEDS: BUDESONIDE 0.25 MG/2 ML NEB NEB SCH ×2 (09:08→19:50)
[2021-04-26] VITALS (8 sets, daily range): BP systolic 100–179; BP diastolic 62–86
[2021-04-26] MEDS: IPRATROPIUM BROMIDE 0.02% 2.5 ML NEB NEB SCH ×4 (00:50→19:30)
[2021-04-26] MEDS: BUDESONIDE 0.25 MG/2 ML NEB NEB SCH ×2 (07:00→19:30)
[2021-04-26] MEDS: DEXTROSE 50% SYRINGE 50 ML IV PRN (07:53)
[2021-04-26] MEDS: AMLODIPINE BESYLATE 5 MG TAB PO SCH (08:37)
[2021-04-26] MEDS: METOPROLOL TARTRATE 50 MG TAB PO SCH ×2 (08:37→21:25)
[2021-04-26] MEDS: POTASSIUM CHLORIDE 10MEQ EA PO SCH (08:37)
[2021-04-26] MEDS: OYST-CAL-D 500MG TABLET PO SCH ×2 (08:37→16:19)
[2021-04-26] MEDS: PREDNISONE 10 MG TAB PO SCH (08:37)
[2021-04-26] MEDS: FAMOTIDINE 20 MG TAB PO SCH ×2 (08:37→21:25)
[2021-04-26] MEDS: CYANOCOBALAMIN INJ 1,000 MCG/ML VIAL IM SCH (08:37)
[2021-04-26] MEDS: FUROSEMIDE INJ 10 MG/ML 4 ML VIAL IV SCH (08:37)
[2021-04-26] MEDS: LOSARTAN POTASSIUM 100 MG TAB PO SCH (08:37)
[2021-04-26] MEDS: IRON SUCROSE 100 MG in SODIUM CHLORIDE 0.9% 100 ML 100 ML IV SCH (08:37)
[2021-04-26] MEDS: APIXAB 2.5 MG TABLET PO SCH (21:25)
[2021-04-27] VITALS (8 sets, daily range): BP systolic 130–156; BP diastolic 66–95
[2021-04-27] MEDS: IPRATROPIUM BROMIDE 0.02% 2.5 ML NEB NEB SCH ×4 (00:55→20:00)
[2021-04-27 06:12] LABS: BASOPHILS # (AUTO) 0.1 (0.0-0.1); BASOPHILS % 0.4 % (0.0-1.0); EOSINOPHILS # (AUTO) 0.2 (0.0-0.4); EOSINOPHILS % 1.2 % (0.0-6.0); HEMATOCRIT 34.7 % (34.2-44.1); HEMOGLOBIN 11.1 g/dL (12.0-16.0); LYMPHOCYTES # (AUTO) 2.7 (1.0-3.2); LYMPHOCYTES % 17.2 % (18.0-39.1); MEAN CORPUSCULAR HEMOGLOBIN 27.3 pg (28-32); MEAN CORPUSCULAR VOLUME 85.5 fL (81-99); MONOCYTES # (AUTO) 0.9 (0.2-0.8); MONOCYTES % 5.5 % (4.4-11.3); NEUTROPHILS # (AUTO) 11.5 (2.1-6.9); NEUTROPHILS % 74.6 % (38.7-80.0); PLATELET COUNT 370 x10e3/uL (140-360); RED BLOOD COUNT 4.06 x10e6/uL (3.6-5.1); RED CELL DISTRIBUTION WIDTH 16.7 % (11.7-14.4)
[2021-04-27 06:34] LABS: ALBUMIN 2.5 g/dL (3.5-5.0); ALBUMIN/GLOBULIN RATIO 0.7 (0.8-2.0); ANION GAP 11.8 mmol/L (8-16); CALCIUM 9.2 mg/dL (8.4-10.2); CREATININE, SERUM 0.79 mg/dL (0.57-1.11); POTASSIUM 3.8 mmol/L (3.5-5.1)
[2021-04-27] MEDS: BUDESONIDE 0.25 MG/2 ML NEB NEB SCH ×2 (06:45→20:00)
[2021-04-27] MEDS: DEXTROSE 50% SYRINGE 50 ML IV PRN ×3 (08:10→16:35)
[2021-04-27] MEDS: LOSARTAN POTASSIUM 100 MG TAB PO SCH (09:23)
[2021-04-27] MEDS: IRON SUCROSE 100 MG in SODIUM CHLORIDE 0.9% 100 ML 100 ML IV SCH (09:23)
[2021-04-27] MEDS: CYANOCOBALAMIN INJ 1,000 MCG/ML VIAL IM SCH (09:23)
[2021-04-27] MEDS: FUROSEMIDE INJ 10 MG/ML 4 ML VIAL IV SCH (09:23)
[2021-04-27] MEDS: POTASSIUM CHLORIDE 10MEQ EA PO SCH (09:24)
[2021-04-27] MEDS: APIXAB 2.5 MG TABLET PO SCH ×2 (09:24→21:00)
[2021-04-27] MEDS: METOPROLOL TARTRATE 50 MG TAB PO SCH ×2 (09:25→21:00)
[2021-04-27] MEDS: FAMOTIDINE 20 MG TAB PO SCH ×2 (09:27→21:00)
[2021-04-27] MEDS: AMLODIPINE BESYLATE 5 MG TAB PO SCH (09:27)
[2021-04-27] MEDS: OYST-CAL-D 500MG TABLET PO SCH ×2 (09:27→16:38)
[2021-04-27] MEDS: PREDNISONE 10 MG TAB PO SCH (09:27)
[2021-04-27] MEDS ORDERED: ONDANSETRON HCL INJ 2MG/ML 2ML 2 MG/ML VIAL ONE (10:43)
[2021-04-27] MEDS ORDERED: DEXTROSE 5%/0.45% SOD CHL 1,000 ML IV SCH ×2 (16:15→17:00)
[2021-04-27] MEDS ORDERED: DEXTROSE 5% 1,000 ML IV ONE (16:20)
[2021-04-28] VITALS (8 sets, daily range): BP systolic 99–177; BP diastolic 44–103
[2021-04-28] MEDS: IPRATROPIUM BROMIDE 0.02% 2.5 ML NEB NEB SCH ×4 (02:15→20:00)
[2021-04-28 06:28] LABS: BASOPHILS # (AUTO) 0.1 (0.0-0.1); BASOPHILS % 0.5 % (0.0-1.0); EOSINOPHILS # (AUTO) 0.2 (0.0-0.4); EOSINOPHILS % 1.7 % (0.0-6.0); LYMPHOCYTES # (AUTO) 2.7 (1.0-3.2); LYMPHOCYTES % 19.5 % (18.0-39.1); MEAN CORPUSCULAR HEMOGLOBIN 27.5 pg (28-32); MEAN CORPUSCULAR HGB CONC 31.6 g/dL (31-35); MEAN CORPUSCULAR VOLUME 86.8 fL (81-99); MONOCYTES # (AUTO) 0.7 (0.2-0.8); NEUTROPHILS # (AUTO) 9.9 (2.1-6.9); NEUTROPHILS % 72.1 % (38.7-80.0); PLATELET COUNT 312 x10e3/uL (140-360); RED BLOOD COUNT 3.57 x10e6/uL (3.6-5.1); RED CELL DISTRIBUTION WIDTH 16.9 % (11.7-14.4)
[2021-04-28 06:39] LABS: HEMOGLOBIN 9.8 g/dL (12.0-16.0)
[2021-04-28] MEDS: BUDESONIDE 0.25 MG/2 ML NEB NEB SCH ×2 (06:48→20:00)
[2021-04-28] MEDS: DEXTROSE 50% SYRINGE 50 ML IV PRN ×3 (07:55→11:30)
[2021-04-28] MEDS: METOPROLOL TARTRATE 50 MG TAB PO SCH ×2 (09:00→20:44)
[2021-04-28] MEDS: LOSARTAN POTASSIUM 100 MG TAB PO SCH (09:00)
[2021-04-28] MEDS: CYANOCOBALAMIN INJ 1,000 MCG/ML VIAL IM SCH (09:00)
[2021-04-28] MEDS: PREDNISONE 10 MG TAB PO SCH (09:00)
[2021-04-28] MEDS: APIXAB 2.5 MG TABLET PO SCH ×2 (09:00→20:44)
[2021-04-28] MEDS: IRON SUCROSE 100 MG in SODIUM CHLORIDE 0.9% 100 ML 100 ML IV SCH (09:00)
[2021-04-28] MEDS: AMLODIPINE BESYLATE 5 MG TAB PO SCH (09:00)
[2021-04-28] MEDS: POTASSIUM CHLORIDE 10MEQ EA PO SCH (09:00)
[2021-04-28] MEDS: FAMOTIDINE 20 MG TAB PO SCH ×2 (09:00→20:44)
[2021-04-28] MEDS: FUROSEMIDE 20 MG TAB PO SCH (09:00)
[2021-04-28] MEDS: OYST-CAL-D 500MG TABLET PO SCH ×2 (09:00→16:51)
[2021-04-28] MEDS ORDERED: DEXTROSE 10% 1,000 ML IV SCH (11:45)
[2021-04-28] MEDS: DEXTROSE 10% 1,000 ML IV SCH (11:45)
[2021-04-28] MEDS: NYSTATIN SUSPENSION 5 ML UDC PO SCH ×3 (13:26→20:44)
[2021-04-28 15:10] LABS: FREE T4 (FREE THYROXINE) 0.87 ng/dL (0.8-1.8); THYROID STIMULATING HORMONE 6.552 uIU/mL (0.350-4.940)
[2021-04-29] VITALS (7 sets, daily range): BP systolic 93–182; BP diastolic 50–93
[2021-04-29] MEDS: IPRATROPIUM BROMIDE 0.02% 2.5 ML NEB NEB SCH ×3 (02:15→13:00)
[2021-04-29] MEDS: NYSTATIN SUSPENSION 5 ML UDC PO SCH ×4 (05:00→17:00)
[2021-04-29] MEDS: BUDESONIDE 0.25 MG/2 ML NEB NEB SCH (07:10)
[2021-04-29] MEDS: DEXTROSE 10% 1,000 ML IV SCH (09:14)
[2021-04-29] MEDS: CYANOCOBALAMIN INJ 1,000 MCG/ML VIAL IM SCH (09:19)
[2021-04-29] MEDS: APIXAB 2.5 MG TABLET PO SCH (09:20)
[2021-04-29] MEDS: FUROSEMIDE 20 MG TAB PO SCH (09:20)
[2021-04-29] MEDS: LOSARTAN POTASSIUM 100 MG TAB PO SCH (09:20)
[2021-04-29] MEDS: POTASSIUM CHLORIDE 10MEQ EA PO SCH (09:20)
[2021-04-29] MEDS: PREDNISONE 10 MG TAB PO SCH (09:21)
[2021-04-29] MEDS: METOPROLOL TARTRATE 50 MG TAB PO SCH (09:21)
[2021-04-29] MEDS: AMLODIPINE BESYLATE 5 MG TAB PO SCH (09:21)
[2021-04-29] MEDS: OYST-CAL-D 500MG TABLET PO SCH ×2 (09:21→17:34)
[2021-04-29] MEDS: FAMOTIDINE 20 MG TAB PO SCH (09:21)
[2021-04-29] MEDS ORDERED: COZAAR100 MG PO (14:25)
[2021-04-29] MEDS ORDERED: ELIQUIS2.5 MG PO (14:25)
[2021-04-29] MEDS ORDERED: METOPROLOL TART50 MG PO (14:25)
[2021-04-29] MEDS ORDERED: PREDNISONE10 MG PO (14:25)
[2021-04-29] MEDS ORDERED: NORVASC5 MG PO (14:25)
[2021-04-29] MEDS ORDERED: K DUR10 MEQ PO (14:25)
[2021-04-29] MEDS ORDERED: FAMOTIDINE20 MG PO (14:25)
[2021-04-29] MEDS ORDERED: PULMICORT2 ML NEB (14:25)
[2021-04-29] MEDS ORDERED: FUROSEMIDE20 MG PO (14:25)
[2021-04-30] MEDS ORDERED: LEVOTHYROXINE SODIUM 75 MCG TAB PO SCH (06:00)
== END 2021-04-29 18:59 | disposition hospice, home (50) | DRG 871 ==
LOC: ER 05:55 → ERHOLD 09:22 → MED/SURG2 11:17 → ICU 21:06 → MED/SURG 04-17 19:45 → MED/SURG2 04-18 11:48
PROVIDERS: ADMIT Internal Medicine; ATTEND Internal Medicine
PROC: 02HV33Z Insertion of Infusion Device into Superior Vena Cava, Percutaneous Approach (ICD-10-PCS; principal; 2021-04-16)
DX: A41.9 Sepsis, unspecified organism (principal); L89.324 Pressure ulcer of left buttock, stage 4; J69.0 Pneumonitis due to inhalation of food and vomit; J96.21 Acute and chronic respiratory failure with hypoxia; I50.23 Acute on chronic systolic (congestive) heart failure; E44.1 Mild protein-calorie malnutrition; I48.20 Chronic atrial fibrillation, unspecified; I13.0 Hypertensive heart and chronic kidney disease with heart failure and stage 1 through stage 4 chronic kidney disease, or unspecified chronic kidney disease; R65.20 Severe sepsis without septic shock; J84.115 Respiratory bronchiolitis interstitial lung disease; E87.70 Fluid overload, unspecified; Z86.73 Personal history of transient ischemic attack (TIA), and cerebral infarction without residual deficits; Z87.440 Personal history of urinary (tract) infections; E78.5 Hyperlipidemia, unspecified; F03.90 Unspecified dementia, unspecified severity, without behavioral disturbance, psychotic disturbance, mood disturbance, and anxiety; Z87.891 Personal history of nicotine dependence; Z20.822 Contact with and (suspected) exposure to COVID-19; Z68.20 Body mass index [BMI] 20.0-20.9, adult; R62.7 Adult failure to thrive; E11.649 Type 2 diabetes mellitus with hypoglycemia without coma; E87.6 Hypokalemia; E11.22 Type 2 diabetes mellitus with diabetic chronic kidney disease; N18.9 Chronic kidney disease, unspecified
CPT/HCPCS: 36415; 36569; 36600; 70450; 71045; 71250; 74018; 74177; 76604; 78315; 80048; 80053; 80061; 81001; 82024; 82150; 82550; 82553; 82607; 82746; 82805; 82947; 82948; 83036; 83540; 83605; 83690; 83735; 83880; 84439; 84443; 84466; 84484; 84681; 85025; 85045; 85610; 85730; 87040; 87071; 87086; 87186; 87205; 93005; 93306; 94640; 96367; 96376; 97139; 97605; 99251; 99285; A9503; J0360; J0456; J0696; J1160; J1650; J1756; J1940; J2405; J2543; J2920; J3370; J3420; J3480; J3486; J7030; J7050; J7070; J7512; J7799; Q0162; U0002